=== PATIENT | male | born 1990 | race Caucasian/White ===

== ENCOUNTER 2022-02-17 02:31 | Emergency (ER) | payer OTHER, BC ==
[~2022-02-17] VITALS: Ht 167.6 cm; Wt 83.8 kg
[2022-02-17 02:41] VITALS: BP 145/97
== END 2022-02-17 05:21 | disposition left against medical advice (07) ==
LOC: ER 02:34
DX: K64.9 Unspecified hemorrhoids (principal); Z53.21 Procedure and treatment not carried out due to patient leaving prior to being seen by health care provider

== ENCOUNTER 2023-02-14 23:54 | Inpatient (IN) | payer BC, OTHER ==
[~2023-02-14] VITALS: Ht 167.6 cm; Wt 85.6 kg
[2023-02-15 00:19] LABS: CLARITY,URINE CLEAR (Clear); COLOR,URINE YELLOW (Yellow); GLUCOSE, URINE NEGATIVE (Neg); KETONES,URINE NEGATIVE (Neg); LEUKOCYTE ESTERASE ,URINE NEGATIVE (Neg); NITRITES, URINE NEGATIVE (Neg); OCCULT BLOOD,URINE MODERATE (Neg); PROTEIN,URINE NEGATIVE (Neg); UROBILINOGEN,URINE 0.2 E.U/dL (0.2-1.0)
[2023-02-15 00:28] LABS: BACTERIA,URINE NONE SEEN /HPF (Neg); UA COLLECTION TYPE CLN CATCH MIDSTREAM; WBC,URINE 0-4 /HPF (0-4)
[2023-02-15 00:29] LABS: SQUAMOUS EPITHELIAL CELL,UR NONE SEEN /LPF (FEW)
[2023-02-15 02:48] LABS: BASOPHILS # (AUTO) 0.1 X10'3 (0-0.2); BASOPHILS % (AUTO) 1.2 % (0-1); EOSINOPHILS # (AUTO) 0.3 X10'3 (0-0.9); EOSINOPHILS % (AUTO) 2.5 % (0-6); HEMATOCRIT 48.8 % (42.0-52.0); HEMOGLOBIN 16.2 g/dl (14.0-17.9); LYMPHOCYTES # (AUTO) 1.9 X10'3 (1.1-4.8); LYMPHOCYTES % (AUTO) 17.9 % (21-51); MEAN CORPUSCULAR HGB CONC 33.3 g/dL (33.0-36.5); MEAN CORPUSCULAR VOLUME 93.1 FL (78-98); MEAN PLATELET VOLUME 8.8 FL (7.4-10.4); MONOCYTES # (AUTO) 0.9 X10'3 (0-0.9); MONOCYTES % (AUTO) 8.7 % (2-12); NEUTROPHILS # (AUTO) 7.4 X10'3 (1.8-7.7); NEUTROPHILS % (AUTO) 69.7 % (42-75); PLATELET COUNT 265 X10'3 (140-440); RED BLOOD COUNT 5.25 X10'6 (4.70-6.10); RED CELL DISTRIBUTION WIDTH 13.3 % (11.5-14.5); WHITE BLOOD COUNT 10.6 X10'3 (4.5-11.0)
[2023-02-15 02:51] LABS: ALANINE AMINOTRANSFERASE 28 U/L (12-78); ALBUMIN 3.6 G/DL (3.4-5.0); ALKALINE PHOSPHATASE 53 IU/L (46-116); ANION GAP 10 (8-16); ASPARTATE AMINO TRANSFERASE 17 U/L (10-37); BILIRUBIN,TOTAL 0.2 MG/DL (0.1-1.0); BLOOD UREA NITROGEN 16 MG/DL (7-18); BUN/CREATININE RATIO 10.7 (10.0-20.0); CALCIUM 8.7 MG/DL (8.5-10.1); CHLORIDE 104 MMOL/L (99-107); CREATININE 1.49 MG/DL (0.60-1.10); GLUCOSE 99 MG/DL (70-104); LIPASE 111 U/L (73-393); POTASSIUM 3.9 MMOL/L (3.5-5.1); SODIUM 138 MMOL/L (135-145); TOTAL CARBON DIOXIDE 23.6 MMOL/L (24-32); TOTAL PROTEIN 7.2 G/DL (6.4-8.2); eGFR 54 ML/MIN
[2023-02-15] MEDS ORDERED: normal saline 1000ml 1,000 ML IV ONE (03:00)
[2023-02-15] MEDS ORDERED: ketorolac trometh. 30mg/ml inj. IV ONE (03:00)
[2023-02-15] MEDS ORDERED: mag hydrox/Alum hydrox/simeth 30ml oral suspension PO PRN (04:00)
[2023-02-15] MEDS ORDERED: potassium Cl 20 mEq SR tablet PO PRN ×2 (04:00)
[2023-02-15] MEDS ORDERED: acetaminophen 325mg tablet PO PRN (04:00)
[2023-02-15] MEDS ORDERED: morphine 2 MG/ML inj. syringe IV PRN ×2 (04:00)
[2023-02-15] MEDS ORDERED: potassium Cl 40MEQ/1/2NS 520ml 520 ML IV PRN (04:00)
[2023-02-15] MEDS ORDERED: ondansetron/PF 4mg/2ml inj IV PRN (04:00)
[2023-02-15] MEDS ORDERED: magnesium 4gm in 100ml NS 100 ML IV PRN (04:00)
[2023-02-15] MEDS ORDERED: magnesium hydroxide 30ml (MOM) UD suspension PO PRN (04:00)
[2023-02-15] MEDS: normal saline 1000ml 1,000 ML IV SCH ×2 (04:28→07:43)
[2023-02-15 06:30] VITALS: BP 146/79
--- NOTE | 2023-02-15 07:08 | NUR ---
Pt stable, transferred to [address] RN gave nurse report to MIKE Reed.
[2023-02-15] MEDS ORDERED: CefTRIAXone/D5W-Rocephin 1gm 50 ML IV SCH (08:00)
[2023-02-15] MEDS ORDERED: docusate sod 100mg capsule PO SCH (08:00)
[2023-02-15] MEDS ORDERED: K and/or MAG REPLACEMENT MC SCH (08:00)
[2023-02-15 10:00] VITALS: BP 126/71
[2023-02-15] MEDS ORDERED: FLO0.4C PO (13:05)
[2023-02-15] MEDS ORDERED: HYDR-3965 PO (13:05)
--- NOTE | 2023-02-15 14:30 | NUR ---
DISCHARGE NOTE: Pt. read educational handouts on diet to prevent kidney stones an kidney stone care. He is aware to strain his urine and save any stone for Dr. Andrade during his f/u visit. He knows he needs to call her to make an french. and he said he has her contact information. Reviewed the rest of his discharge paperwork. Talked about new meds [place] and Flomax. Discussed possible ASE. PIV removed, cannula intact, no s/sx bleeding noted. Pt escorted out of hospital to go home by [facility] with his belongings.
[2023-02-15] MEDS ORDERED: enoxaparin 40mg/0.4ml syringe SQ SCH (20:00)
[2023-02-15] MEDS ORDERED: tamsulosin 0.4mg capsule PO SCH (21:00)
== END 2023-02-15 14:30 | disposition home or self-care (01) | DRG 694 ==
LOC: ER 23:54 → ED HOLD 02-15 04:07 → UNDOADMIN 02-15 04:07 → ED HOLD 02-15 04:56 → EDBEDREQ 02-15 05:11 → ED HOLD 02-15 07:12 → SUR 3N 02-15 07:12 → UNDODISIN 02-15 14:30
PROVIDERS: ADMIT Family Medicine; ATTEND Family Medicine
DX: N13.2 Hydronephrosis with renal and ureteral calculous obstruction (principal); E86.0 Dehydration; N17.9 Acute kidney failure, unspecified; Z87.442 Personal history of urinary calculi
CPT/HCPCS: 36415; 74176; 80053; 81001; 83690; 85025; 87081; 96361; 96374; 99285; A6253; A6449; G0378; J0696; J1885; J2270; J7030